=== PATIENT | female | born 1990 | race Two or more races ===

== ENCOUNTER 2018-03-30 13:31 | Emergency (ER) | payer OTHER ==
[~2018-03-30] VITALS: Ht 162.6 cm; Wt 90.7 kg
== END 2018-03-30 19:06 | disposition home or self-care (01) ==
LOC: ER 13:31
DX: J02.8 Acute pharyngitis due to other specified organisms (principal)

== ENCOUNTER 2018-04-01 00:07 | Emergency (ER) | payer OTHER ==
[~2018-04-01] VITALS: Ht 162.6 cm; Wt 90.7 kg
[2018-04-01] MEDS ORDERED: CEFTIN250 MG/5 M (00:26)
[2018-04-01] MEDS ORDERED: PNEU16DI2 (00:26)
== END 2018-04-01 04:02 | disposition home or self-care (01) ==
LOC: ER 00:07
DX: J06.9 Acute upper respiratory infection, unspecified (principal)

== ENCOUNTER 2023-12-04 08:28 | Outpatient (CLI) | payer OTHER ==
[~2023-12-04 08:28] MED LIST: CEFTIN250 MG/5 M; PNEU16DI2
== END 2023-12-04 08:36 | disposition home or self-care (01) ==
LOC: MAMO-SONO 08:28
PROVIDERS: ATTEND Internal Medicine
DX: E55.9 Vitamin D deficiency, unspecified (principal); F20.81 Schizophreniform disorder; F20.89 Other schizophrenia; E23.3 Hypothalamic dysfunction, not elsewhere classified; E78.1 Pure hyperglyceridemia; E04.1 Nontoxic single thyroid nodule; Z12.31 Encounter for screening mammogram for malignant neoplasm of breast; N64.4 Mastodynia